=== PATIENT | male | born 1955 | race Caucasian/White ===

== ENCOUNTER 2016-09-15 23:59 | Emergency (ER) | payer OTHER, MEDICARE ==
[2016-09-15 23:53] LABS: BASOPHILS 0.3 %; BASOPHILS ABSOLUTE 0.03 10/3/uL (0.0-0.16); EOSINOPHILS 2.9 %; EOSINOPHILS ABSOLUTE 0.31 10/3/uL (0.0-0.53); ER CBC TAT 0 Hrs 08 Mins; HEMATOCRIT 41.4 % (40.0-51.0); HEMOGLOBIN 14.1 g/dL (13.6-17.8); IMMATURE GRANULOCYTES 0.3 %; IMMATURE GRANULOCYTES ABSOLUTE 0.03 10/3/uL (0.0-0.11); LYMPHOCYTES 24.9 %; LYMPHOCYTES ABSOLUTE 2.67 10/3/uL (0.67-4.30); MEAN CORPUS HGB CONC 34.1 g/dL (32.0-36.0); MEAN CORPUSCULAR HEMOGLOB 29.6 pg (26.0-34.0); MEAN PLATELET VOLUME 9.3 fL (9.2-13.0); MONOCYTES 5.1 %; MONOCYTES ABSOLUTE 0.55 10/3/uL (0.21-1.20); NEUTROPHILS 66.5 %; NEUTROPHILS ABSOLUTE 7.12 10/3/uL (2.02-8.40); PLATELET COUNT 239 10/3/uL (150-400); RBC DISTRIBUTION WIDTH 13.6 % (12.0-16.0); RED CELL COUNT 4.76 10/6/uL (4.7-6.1); WHITE BLOOD CELLS 10.7 10/3/uL (4.5-10.5)
[2016-09-15 23:54] LABS: MANUAL DIFF NO %
[~2016-09-15 23:59] MED LIST: ASAB PO; AVODART PO; BETAMETH VAL0.12 TOP; CIP5 PO; CONSTULOSE PO; DALIRESP500 MCG PO; DENIES HOME MEDS; DEPAKOT500 PO; DITROXL5 PO; DSS PO; DULERA 200 MCG/13 GM INH; DUONEB INH; EFFEXOR XR150 MG PO; EXELON4.6T PO; EXELON9.5T PO; FLOMAX4 PO; FLONASE NAS; GGEXPUD PO; HALF81 PO; LIOR10 PO; LOP25 PO; LOVENOX40 SC; MCZ25 PO; MONODOX100 MG PO; NEUR300 PO; NITROMIST400 MCG SL; NITROSPRAY SL; NORCO1 TAB PO; P20 PO; PCET PO; PERCOCET1 TA4 PO; PROSCAR5 PO; PROTONIX PO; PROVHFA INH; RX OINTMENT TOP; SAL500 PO; SINGULAIR1 PO; SPIRIVA RESPIMAT INH; SYN.025B PO; TESTOSTERON CYP IM; TESTOSTERONE IM; TRICOR145 PO; VALIUM10 MG PO; VENTOLIN HFA INH
[2016-09-16 00:01] LABS: INTERNATIONAL NORMAL RATI 1.1 UNITS (-); PARTIAL THROMBO TIME 28.3 SEC (22.5-37.2); PROTIME (NOT ORD) 14.3 SEC (12.0-14.5)
[2016-09-16 00:12] LABS: CHEST PAIN PROFILE TAT 0 Hrs 27 Mins; CHLORIDE, SERUM 102 MMOL/L (96-112); CO2 (CARBON DIOXIDE) 30 MMOL/L (24-34); CREATININE 1.27 MG/DL (0.70-1.30); GFR AFRICAN AMERICAN 70 ML/MIN (>=60); GFR NON AFRICAN AMERICAN 60 ML/MIN (>=60); GLUCOSE, SERUM 147 MG/DL (60-99); POTASSIUM, SERUM 3.5 MMOL/L (3.5-5.3); SODIUM, SERUM 140 MMOL/L (135-148); TROPONIN I <0.02 NG/ML (<0.05)
[2016-09-16 00:17] LABS: BUN (BLOOD UREA NITROGEN) 10 MG/DL (6-23)
[2016-09-16 00:34] LABS: ASCORBIC ACID (UR NOT ORDER) NEG (NEG); BILIRUBIN, URINE NEGATIVE (NEG); ER URINALYSIS TAT 0 Hrs 11 Mins; KETONE, URINE NEGATIVE (NEG); LEUKOCYTE ESTERASE(NOT OR TRACE (NEG); NITRITE (URINE) NEG (NEG); WBC (NOT ORDERED) (RFLEX) 7 (0-5)
[2017-01-07] MEDS ORDERED: NITROSTAT0.4 MG SL (22:08)
[2017-01-07] MEDS ORDERED: DUONEB INH (22:09)
[2017-01-07] MEDS ORDERED: BEVESPI AEROS10.7 GM INH (22:09)
[2017-01-07] MEDS ORDERED: SPIRIVA RESPIMAT INH (22:09)
[2017-01-07] MEDS ORDERED: PRILOSEC40 MG PO (22:10)
[2017-01-07] MEDS ORDERED: EFFEXOR XR150 MG PO (22:10)
[2017-01-07] MEDS ORDERED: NEUR600 PO (22:10)
[2017-01-07] MEDS ORDERED: TRICOR145 PO (22:10)
[2017-01-07] MEDS ORDERED: TESTOST CYP100 MG/ML IM (22:11)
[2017-01-07] MEDS ORDERED: PERCOCET 10/3251 TAB PO ×2 (22:11)
[2017-01-07] MEDS ORDERED: COMPOUNDED EYE OPH (22:12)
[2017-01-07] MEDS ORDERED: DALIRESP500 MCG PO (22:13)
[2017-01-07] MEDS ORDERED: VENTOLIN HFA PO (22:13)
[2017-01-07] MEDS ORDERED: BYSTOLIC10 MG PO (22:13)
[2017-01-07] MEDS ORDERED: CROMOLYN 20 MG/2 ML INH (22:14)
[2017-01-09] MEDS ORDERED: MONODOX100 MG PO (15:38)
[2017-01-09] MEDS ORDERED: MEDROLPAK4 PO (15:40)
[2017-02-21] MEDS ORDERED: DSS PO (20:10)
[2017-03-18] MEDS ORDERED: DALIRESP500 MCG PO (18:09)
[2017-03-18] MEDS ORDERED: BYSTOLIC10 MG PO (18:10)
[2017-03-18] MEDS ORDERED: NEUR600 PO (18:10)
[2017-03-18] MEDS ORDERED: EFFEXOR XR150 MG PO (18:10)
[2017-03-18] MEDS ORDERED: TRICOR145 PO (18:11)
[2017-03-18] MEDS ORDERED: VENTOLIN HFA INH (18:11)
[2017-03-18] MEDS ORDERED: DSS PO (18:11)
[2017-03-18] MEDS ORDERED: PERCOCET 10/3251 TAB PO (18:11)
[2017-03-18] MEDS ORDERED: DULERA 200 MCG/13 GM INH (18:13)
[2017-03-18] MEDS ORDERED: STIOLTO RESPIMAT4 GM INH (18:14)
[2017-03-18] MEDS ORDERED: DUONEB INH (18:14)
[2017-03-18] MEDS ORDERED: NITROLINGUAL S4.9 GM SL (18:15)
[2017-03-18] MEDS ORDERED: CROMOLYN SODIUM (18:15)
[2017-03-18] MEDS ORDERED: PLAVIX PO (18:16)
[2017-03-18] MEDS ORDERED: TESTOST CYP100 MG/ML IM (18:16)
[2017-03-18] MEDS ORDERED: D100 PO ×2 (18:17)
[2017-03-18] MEDS ORDERED: ASABAYER PO (18:22)
[2017-03-20] MEDS ORDERED: ATV.5 PO (12:24)
== END 2016-09-16 01:11 | disposition home or self-care (01) ==
LOC: ER 23:59
PROVIDERS: Specialist
DX: R56.9 Unspecified convulsions (principal); J44.9 Chronic obstructive pulmonary disease, unspecified; I25.2 Old myocardial infarction; E11.9 Type 2 diabetes mellitus without complications; Z86.73 Personal history of transient ischemic attack (TIA), and cerebral infarction without residual deficits; Z95.0 Presence of cardiac pacemaker; Z87.891 Personal history of nicotine dependence; Z91.018 Allergy to other foods; Z79.899 Other long term (current) drug therapy
CPT/HCPCS: 70450; 71010; 80048; 81001; 83735; 84484; 85025; 85610; 85730; 93005; 94640; 96372; 99285; A9270-GY; J2360

== ENCOUNTER 2016-10-17 19:28 | Emergency (ER) | payer OTHER, MEDICARE ==
[2016-10-17 20:36] LABS: BASOPHILS 0.2 %; BASOPHILS ABSOLUTE 0.02 10/3/uL (0.0-0.16); EOSINOPHILS ABSOLUTE 0.11 10/3/uL (0.0-0.53); ER CBC TAT 0 Hrs 03 Mins; HEMOGLOBIN 15.9 g/dL (13.6-17.8); IMMATURE GRANULOCYTES 0.3 %; IMMATURE GRANULOCYTES ABSOLUTE 0.03 10/3/uL (0.0-0.11); LYMPHOCYTES 21.6 %; LYMPHOCYTES ABSOLUTE 2.46 10/3/uL (0.67-4.30); MEAN CORPUS HGB CONC 34.9 g/dL (32.0-36.0); MEAN CORPUSCULAR HEMOGLOB 30.9 pg (26.0-34.0); MEAN CORPUSCULAR VOLUME 88.5 fL (80-100); MEAN PLATELET VOLUME 9.5 fL (9.2-13.0); MONOCYTES 8.3 %; MONOCYTES ABSOLUTE 0.95 10/3/uL (0.21-1.20); NEUTROPHILS 68.6 %; NEUTROPHILS ABSOLUTE 7.84 10/3/uL (2.02-8.40); PLATELET COUNT 276 10/3/uL (150-400); RBC DISTRIBUTION WIDTH 14.2 % (12.0-16.0); RED CELL COUNT 5.15 10/6/uL (4.7-6.1); WHITE BLOOD CELLS 11.4 10/3/uL (4.5-10.5)
[2016-10-17 20:37] LABS: HEMATOCRIT 45.6 % (40.0-51.0); MANUAL DIFF NO %
[2016-10-17 20:52] LABS: A/G RATIO 1.3 (0.7-1.9); ALBUMIN 3.9 G/DL (3.5-5.0); ALKALINE PHOSPHATASE 67 U/L (45-117); BUN (BLOOD UREA NITROGEN) 13 MG/DL (6-23); CALCIUM, SERUM 8.7 MG/DL (8.5-10.4); CHLORIDE, SERUM 110 MMOL/L (96-112); CO2 (CARBON DIOXIDE) 26 MMOL/L (24-34); CREATININE 1.04 MG/DL (0.70-1.30); GFR AFRICAN AMERICAN 89 ML/MIN (>=60); GFR NON AFRICAN AMERICAN 77 ML/MIN (>=60); GLOBULIN 3.1 G/DL (2.5-4.1); GLUCOSE, SERUM 121 MG/DL (60-99); POTASSIUM, SERUM 4.4 MMOL/L (3.5-5.3); SGOT(AST) 18 U/L (5-40); SGPT(ALT) 27 U/L (5-65); SODIUM, SERUM 144 MMOL/L (135-148); TOTAL BILIRUBIN 0.6 MG/DL (0-1.2)
[2016-10-17 20:57] LABS: INFLUENZA A SCREEN NEGATIVE (NEGATIVE); INFLUENZA B SCREEN NEGATIVE (NEGATIVE)
[2016-10-17 23:05] LABS: CARBOXYHEMOGLOBIN 1.8 % (0-3); HCO3 (ACTUAL BICARBONATE) 23.9 MEQ/L (23-27); INSTRUMENT SERIAL # 8087; METHEMOGLOBIN 0.2 % (0-3); PCO2 (CO2 TENSION) 45 MMHG (35-45); PO2 (O2 TENSION) 96 MMHG (79-93); pH 7.34 (7.37-7.43)
[2016-10-17 23:06] LABS: ALLENS TEST Pos; DEVICE Nasal Cannula @ 2; HEMOBLOGIN CONTENT 16.1 G/DL (14-18); O2 CONTENT 21.6 VOL% (18-24); OPERATOR ID 17589; SAMPLE Arterial
[2017-01-07] MEDS ORDERED: NITROSTAT0.4 MG SL (22:08)
[2017-01-07] MEDS ORDERED: SPIRIVA RESPIMAT INH (22:09)
[2017-01-07] MEDS ORDERED: BEVESPI AEROS10.7 GM INH (22:09)
[2017-01-07] MEDS ORDERED: DUONEB INH (22:09)
[2017-01-07] MEDS ORDERED: NEUR600 PO (22:10)
[2017-01-07] MEDS ORDERED: PRILOSEC40 MG PO (22:10)
[2017-01-07] MEDS ORDERED: EFFEXOR XR150 MG PO (22:10)
[2017-01-07] MEDS ORDERED: TRICOR145 PO (22:10)
[2017-01-07] MEDS ORDERED: TESTOST CYP100 MG/ML IM (22:11)
[2017-01-07] MEDS ORDERED: PERCOCET 10/3251 TAB PO ×2 (22:11)
[2017-01-07] MEDS ORDERED: COMPOUNDED EYE OPH (22:12)
[2017-01-07] MEDS ORDERED: DALIRESP500 MCG PO (22:13)
[2017-01-07] MEDS ORDERED: BYSTOLIC10 MG PO (22:13)
[2017-01-07] MEDS ORDERED: VENTOLIN HFA PO (22:13)
[2017-01-07] MEDS ORDERED: CROMOLYN 20 MG/2 ML INH (22:14)
[2017-01-09] MEDS ORDERED: MONODOX100 MG PO (15:38)
[2017-01-09] MEDS ORDERED: MEDROLPAK4 PO (15:40)
[2017-02-21] MEDS ORDERED: DSS PO (20:10)
[2017-03-18] MEDS ORDERED: DALIRESP500 MCG PO (18:09)
[2017-03-18] MEDS ORDERED: EFFEXOR XR150 MG PO (18:10)
[2017-03-18] MEDS ORDERED: BYSTOLIC10 MG PO (18:10)
[2017-03-18] MEDS ORDERED: NEUR600 PO (18:10)
[2017-03-18] MEDS ORDERED: PERCOCET 10/3251 TAB PO (18:11)
[2017-03-18] MEDS ORDERED: TRICOR145 PO (18:11)
[2017-03-18] MEDS ORDERED: DSS PO (18:11)
[2017-03-18] MEDS ORDERED: VENTOLIN HFA INH (18:11)
[2017-03-18] MEDS ORDERED: DULERA 200 MCG/13 GM INH (18:13)
[2017-03-18] MEDS ORDERED: DUONEB INH (18:14)
[2017-03-18] MEDS ORDERED: STIOLTO RESPIMAT4 GM INH (18:14)
[2017-03-18] MEDS ORDERED: NITROLINGUAL S4.9 GM SL (18:15)
[2017-03-18] MEDS ORDERED: CROMOLYN SODIUM (18:15)
[2017-03-18] MEDS ORDERED: TESTOST CYP100 MG/ML IM (18:16)
[2017-03-18] MEDS ORDERED: PLAVIX PO (18:16)
[2017-03-18] MEDS ORDERED: D100 PO ×2 (18:17)
[2017-03-18] MEDS ORDERED: ASABAYER PO (18:22)
[2017-03-20] MEDS ORDERED: ATV.5 PO (12:24)
== END 2016-10-17 21:25 | disposition home or self-care (01) ==
LOC: ER 19:28
PROVIDERS: Nurse Practitioner Acute Care
DX: J44.1 Chronic obstructive pulmonary disease with (acute) exacerbation (principal); Z86.73 Personal history of transient ischemic attack (TIA), and cerebral infarction without residual deficits; Z87.891 Personal history of nicotine dependence; Z79.899 Other long term (current) drug therapy
CPT/HCPCS: 36600; 71010; 80053; 82805; 85025; 87040; 87070; 87205; 87804; 93005; 94640; 96374; 99285; J2930